=== PATIENT | male | born 1945 | race Hispanic/Latino ===

== ENCOUNTER → 2019-05-07 | Outpatient (CLI) | payer OTHER ==
[~2019-05-07] MED LIST: ASPI-555 PO; BENA10TA12 PO; GLIP5TAB11 PO; SIMV10TA6 PO
== END | disposition home or self-care (01) ==
LOC: RAH 10:03
PROVIDERS: ATTEND Internal Medicine Cardiovascular Disease
DX: I73.9 Peripheral vascular disease, unspecified (principal); I11.9 Hypertensive heart disease without heart failure
CPT/HCPCS: 93306; 93925

== ENCOUNTER 2019-05-16 05:52 | Inpatient (IN) | payer OTHER | END 2019-05-23 16:00 | LOC: DAH 05:52 → 2CV 05-17 08:11 → 2CH 05-18 09:59 → DAH 05:52 → 2AH 05:53 → 2DH 05-19 19:11 | PROC: 4A023N7 Measurement of Cardiac Sampling and Pressure, Left Heart, Percutaneous Approach (ICD-10-PCS; principal; 2019-05-17 08:11) | PROC: B2111ZZ Fluoroscopy of Multiple Coronary Arteries using Low Osmolar Contrast (ICD-10-PCS; 2019-05-17 08:11) | PROC: 0212099 Bypass Coronary Artery, Three Arteries from Left Internal Mammary with Autologous Venous Tissue, Open Approach (ICD-10-PCS; 2019-05-17 08:11) | PROC: 06BQ3ZZ Excision of Left Saphenous Vein, Percutaneous Approach (ICD-10-PCS; 2019-05-17 08:11) | PROC: 021009W Bypass Coronary Artery, One Artery from Aorta with Autologous Venous Tissue, Open Approach (ICD-10-PCS; 2019-05-17 08:11) | DX: I25.10 Atherosclerotic heart disease of native coronary artery without angina pectoris (principal); J96.00 Acute respiratory failure, unspecified whether with hypoxia or hypercapnia; I20.9 Angina pectoris, unspecified; I48.91 Unspecified atrial fibrillation ==

== ENCOUNTER → 2023-11-20 | Outpatient (CLI) | payer OTHER ==
[~2023-11-20] MED LIST changes: -ASPI-555 PO; +ASPI-556 PO; -BENA10TA12 PO; +BENA10TA77 PO; -GLIP5TAB11 PO; +GLIP5TAB15 PO; -SIMV10TA6 PO; +SIMV10TA97 PO
[2023-11-20] MEDS: REGADENOSON 0.4 MG/5 ML PF SYG IVP ONE (11:56)
== END | disposition home or self-care (01) ==
LOC: SHCH 08:26
PROVIDERS: ATTEND Internal Medicine Cardiovascular Disease
DX: I25.10 Atherosclerotic heart disease of native coronary artery without angina pectoris (principal); I10 Essential (primary) hypertension
CPT/HCPCS: 78452; 96374; 93017; J2785; A9500 ×2

== ENCOUNTER → 2023-12-27 | Outpatient (CLI) | payer OTHER | END | disposition home or self-care (01) | LOC: SHCH 12:24 | PROVIDERS: ATTEND Internal Medicine Cardiovascular Disease | DX: I25.10 Atherosclerotic heart disease of native coronary artery without angina pectoris (principal); I10 Essential (primary) hypertension; E11.9 Type 2 diabetes mellitus without complications; E78.5 Hyperlipidemia, unspecified; Z95.1 Presence of aortocoronary bypass graft | CPT/HCPCS: 93306 ==